=== PATIENT | female | born 1990 | race Caucasian/White ===

== ENCOUNTER 2019-01-17 20:03 | Inpatient (IN) | payer MEDICAID ==
[2019-01-17] MEDS ORDERED: OXYTOCIN 30 UNITS/LR 500 ML IV (20:30)
[2019-01-17] MEDS ORDERED: LIDOCAINE 1% (MPF) 30 ML INJ INJ (20:30)
[2019-01-17] MEDS ORDERED: CARBOPROST 250 MCG INJ IM (20:30)
[2019-01-17] MEDS ORDERED: BUTORPHANOL 2 MG INJ IV (20:30)
[2019-01-17] MEDS ORDERED: IBUPROFEN 600 MG TAB PO (20:30)
[2019-01-17] MEDS ORDERED: METHYLERGONOVINE 0.2 MG INJ IM (20:30)
[2019-01-17] MEDS ORDERED: MISOPROSTOL 200 MCG TAB PR (20:30)
[2019-01-17] MEDS: LACTATED RINGER'S 1,000 ML IV ×2 (20:45→22:48)
[2019-01-17 21:15] LABS: ADD MAN DIFF? NO
[2019-01-17 21:17] LABS: WHITE BLOOD COUNT 8.7 10^3/ul (4.8-10.8)
[2019-01-17 21:17] LABS: ABNORMAL IP MESSAGE 1; BASOPHILS % 0.3 % (0.0-2.0); EOSINOPHILS # 0.4 10^3/ul (0.0-0.5); EOSINOPHILS % 4.2 % (0.0-7.0); HEMOGLOBIN 12.2 g/dl (12.0-16.0); LYMPHOCYTES % 22.5 % (15.0-51.0); MEAN CORPUSCULAR HEMOGLOBIN 30.5 pg (29.0-33.0); MEAN CORPUSCULAR VOLUME 92.5 fl (82.0-101.0); MEAN PLATELET VOLUME 13.4 fl (7.4-10.4); MONOCYTE # 0.9 10^3/ul (0.3-0.9); MONOCYTES % 9.9 % (0.0-11.0); NEUTROPHIL # 5.5 10^3/ul (1.6-7.5); NEUTROPHILS % 62.6 % (39.0-77.0); PLATELET COUNT 183 10^3/UL (140-415); RED CELL DISTRIBUTION WIDTH 14.4 % (11.5-14.5)
[2019-01-17 21:18] LABS: POSITIVE DIFF @See below
[2019-01-17 21:36] LABS: INR 0.84; PROTIME 11.6 Sec (11.9-14.9); PT RATIO 0.9
[2019-01-17 21:37] LABS: PARTIAL THROMBOPLASTIN TIME 27.3 Sec (23.0-35.0)
[2019-01-17 22:14] LABS: HEPATITIS B SURFACE ANTIGEN NEGATIVE (NEGATIVE)
[2019-01-17] MEDS ORDERED: FENTAnyl 2MCG/ML-ROPIV 0.2% 100 ML (23:54)
[2019-01-18] MEDS ORDERED: ONDANSETRON 4 MG INJ IV (00:30)
[2019-01-18] MEDS ORDERED: NALOXONE (0.4 MG/ML) INJ IV (00:30)
[2019-01-18] MEDS: LACTATED RINGER'S 1,000 ML IV ×2 (01:47→08:03)
[2019-01-18] MEDS: FENTAnyl 2MCG/ML-ROPIV 0.2% 100 ML BAG EPI (02:43)
[2019-01-18] MEDS: OXYTOCIN 30 UNITS/LR 500 ML IV ×3 (09:31→11:10)
[2019-01-18] MEDS: LACTATED RINGER'S 1,000 ML IV* ×2 (11:10→21:09)
[2019-01-18] MEDS: IBUPROFEN 800 MG TAB PO ×3 (11:25→23:40)
[2019-01-18] MEDS: BENZOCAINE 20% 56 ML SPRAY TOP (11:26)
[2019-01-18] MEDS: WITCH HAZEL/GLYCERIN PAD PR (11:27)
[2019-01-18] MEDS: LANOLIN HPA 1 PKT TOP (11:27)
[2019-01-18] MEDS ORDERED: METHYLERGONOVINE 0.2 MG INJ IM (11:30)
[2019-01-18] MEDS ORDERED: ZOLPIDEM 5 MG TAB PO (11:30)
[2019-01-18] MEDS ORDERED: DIPHENHYDRAMINE 25 MG CAP PO (11:30)
[2019-01-18] MEDS ORDERED: CARBOPROST 250 MCG INJ IM (11:30)
[2019-01-18] MEDS ORDERED: ACETAMINOPHEN 325 MG TAB PO (11:30)
[2019-01-18] MEDS ORDERED: SENNA/DOCUSATE NA (8.6MG/50MG) TAB PO (11:30)
[2019-01-18] MEDS ORDERED: OXYTOCIN 30 UNITS/LR 500 ML IV (11:30)
[2019-01-18] MEDS ORDERED: MAGNESIUM HYDROXIDE 30ML CUP PO (11:30)
[2019-01-18] MEDS ORDERED: MISOPROSTOL 200 MCG TAB PR (11:30)
[2019-01-18 20:00] LABS: RAPID PLASMA REAGIN NONREACTIVE (NR)
[2019-01-19] MEDS: IBUPROFEN 800 MG TAB PO ×4 (05:29→23:49)
[2019-01-19] MEDS: HYDROCODONE/APAP (5/325) TAB PO (08:33)
[2019-01-19 08:34] LABS: ADD MAN DIFF? NO
[2019-01-19 08:37] LABS: WHITE BLOOD COUNT 15.2 10^3/ul (4.8-10.8)
[2019-01-19 08:37] LABS: ABNORMAL IP MESSAGE 1; BASOPHIL # 0.1 10^3/ul (0.0-0.1); BASOPHILS % 0.4 % (0.0-2.0); EOSINOPHILS # 0.4 10^3/ul (0.0-0.5); EOSINOPHILS % 2.3 % (0.0-7.0); HEMATOCRIT 31.8 % (37.0-47.0); HEMOGLOBIN 10.5 g/dl (12.0-16.0); LYMPHOCYTES # 2.3 10^3/ul (0.8-2.9); LYMPHOCYTES % 15.2 % (15.0-51.0); MEAN CORPUSCULAR HEMOGLOBIN 30.5 pg (29.0-33.0); MEAN CORPUSCULAR VOLUME 92.4 fl (82.0-101.0); MEAN PLATELET VOLUME 13.3 fl (7.4-10.4); MONOCYTE # 0.9 10^3/ul (0.3-0.9); MONOCYTES % 5.9 % (0.0-11.0); NEUTROPHIL # 11.5 10^3/ul (1.6-7.5); NEUTROPHILS % 75.7 % (39.0-77.0); PLATELET COUNT 152 10^3/UL (140-415); RED BLOOD COUNT 3.44 10^6/ul (4.20-5.40); RED CELL DISTRIBUTION WIDTH 14.8 % (11.5-14.5)
[2019-01-19 08:52] LABS: POSITIVE DIFF @See below
[2019-01-19 13:42] LABS: RUBELLA ANTIBODY - IGM <20.00 AU/mL
[2019-01-19 20:47] LABS: RUBELLA ANTIBODY - IGG 3.43 index
[2019-01-19] MEDS: LANOLIN HPA 1 PKT TOP (21:03)
[2019-01-20] MEDS: HYDROCODONE/APAP (5/325) TAB PO (04:37)
[2019-01-20] MEDS: IBUPROFEN 800 MG TAB PO ×2 (05:49→11:56)
[2019-01-20] MEDS: MEASLES,MUMPS,RUBELLA VACCINE INJ SC* (09:00)
[2019-01-20] MEDS: VARICELLA VACCINE LIVE/PF 1,350 UNIT/0.5 ML ML SC* (09:00)
[2019-01-20] MEDS: DIPHTH/TET/ACEL PERTUSS (ADULT) 0.5 ML VIAL IM* (09:00)
== END 2019-01-20 15:20 | disposition home or self-care (01) | DRG 807 ==
LOC: OBT 20:03 → L-D 01-18 09:34 → PP1 01-18 11:07 → OBT 20:15 → L-D 20:15
PROVIDERS: Obstetrics & Gynecology
PROC: 10E0XZZ Delivery of Products of Conception, External Approach (ICD-10-PCS; principal; 2019-01-18)
PROC: 0HQ9XZZ Repair Perineum Skin, External Approach (ICD-10-PCS; 2019-01-18)
DX: O77.0 Labor and delivery complicated by meconium in amniotic fluid (principal); Z37.0 Single live birth; O70.9 Perineal laceration during delivery, unspecified; Z3A.38 38 weeks gestation of pregnancy
CPT/HCPCS: 62322; 76815; 85025; 85610; 85730; 86592; 86762; 86850; 86900; 86901; 87340; 88307; 90716; 99464